=== PATIENT | male | born 1955 | race Caucasian/White ===

== ENCOUNTER 2025-06-18 02:32 | Inpatient (IN) | payer MEDICARE, OTHER ==
[~2025-06-18] VITALS: Ht 152.4 cm; Wt 65.8 kg
[2025-06-18] MEDS ORDERED: MAGNESIUM HYDROXIDE 30 ML LIQUID UDC PO PRN (03:00)
[2025-06-18] MEDS ORDERED: ACETAMINOPHEN 325 MG TABLET PO PRN (03:00)
[2025-06-18] MEDS ORDERED: MAG HYDROX/AL HYDROX/SIMETH 30 ML LIQUID UDC PO PRN (03:00)
[2025-06-18] MEDS ORDERED: ZOLPIDEM 5 MG TABLET PO PRN ×2 (03:00)
[2025-06-18] MEDS ORDERED: QUETIAPINE FUMARATE 25 MG TABLET PO PRN ×2 (03:00)
[2025-06-18 03:06] VITALS: BP 130/94; TEMP 98.2; O2SAT 96
[2025-06-18] MEDS: BLOOD SUGAR DIAGNOSTIC 1 EACH STRIP VI ONE (03:16)
[2025-06-18] MEDS ORDERED: IPRA0.2S48 NEB (03:58)
[2025-06-18] MEDS ORDERED: DIVA125C2 PO (03:58)
[2025-06-18] MEDS ORDERED: FLUT1DIS4 IH (03:58)
[2025-06-18] MEDS ORDERED: DOCU250C14 PO (03:58)
[2025-06-18] MEDS ORDERED: METO25TA6 PO (03:58)
[2025-06-18] MEDS ORDERED: PANT40TA2 PO (03:58)
[2025-06-18] MEDS ORDERED: ALBU2.5V13 IH (03:58)
[2025-06-18] MEDS ORDERED: FURO20TA4 PO (03:58)
[2025-06-18] MEDS ORDERED: NA P133E RC (03:58)
[2025-06-18] MEDS ORDERED: SENN1TAB59 PO (03:58)
[2025-06-18] MEDS ORDERED: CYCL5TAB4 PO (03:58)
[2025-06-18] MEDS ORDERED: LOSA50TA39 PO (03:58)
[2025-06-18] MEDS ORDERED: MULT-1119 PO (03:58)
[2025-06-18] MEDS ORDERED: LIDO700A30 TP (09:31)
[2025-06-18] MEDS ORDERED: CHOL-35 PO (09:31)
[2025-06-18] MEDS ORDERED: ERGO125010 PO (09:31)
[2025-06-18] MEDS ORDERED: MAGN400O6 PO (09:31)
[2025-06-18] MEDS ORDERED: ACET-3752 PO (09:31)
[2025-06-18 09:43] VITALS: BP 96/70; TEMP 98; O2SAT 96
[2025-06-18] MEDS ORDERED: LIDOCAINE 5% PATCH TD PRN (12:30)
[2025-06-18] MEDS ORDERED: FLEET ENEMA 133 ML BOTTLE RC PRN (12:30)
[2025-06-18] MEDS ORDERED: OLANZAPINE 2.5 MG TABLET PO PRN (13:00)
[2025-06-18] MEDS: DIVALPROEX 125 MG TABLET.DR PO SCH (14:00)
[2025-06-18] MEDS ORDERED: SENN8.6T19 PO (14:17)
[2025-06-18] MEDS ORDERED: CYCLOBENZAPRINE HCL 10 MG TABLET PO PRN (14:30)
[2025-06-18] MEDS ORDERED: FLUTICASONE/SALMETEROL 250/50 INHALER IH SCH (17:00)
[2025-06-18] MEDS: MOMETASONE/FORMOTEROL 8.8 GM HFA.AER.AD IH SCH (20:31)
[2025-06-18] MEDS: OLANZAPINE 2.5 MG TABLET PO SCH (20:31)
[2025-06-18] MEDS: SENNOSIDES 1 TABLET PO SCH (20:31)
[2025-06-18] MEDS: DOCUSATE SODIUM 100 MG CAPSULE PO SCH (20:31)
[2025-06-18] MEDS ORDERED: SENNOSIDES/DOCUSATE SODIUM TABLET PO SCH (21:00)
[2025-06-18] MEDS ORDERED: DOCUSATE SODIUM 250 MG CAPSULE PO SCH (21:00)
[2025-06-19] MEDS: PANTOPRAZOLE SODIUM 40 MG TABLET.DR PO SCH (06:54)
[2025-06-19 07:40] VITALS: BP 100/61; TEMP 98; O2SAT 96
[2025-06-19] MEDS: MULTIVITAMINS,THERAPEUTIC TABLET PO SCH (09:00)
[2025-06-19] MEDS: CHOLECALCIFEROL 1,000 UNIT TABLET PO SCH (09:00)
[2025-06-20] MEDS: OLANZAPINE 2.5 MG TABLET PO SCH (09:00)
[2025-06-24] MEDS: OLANZAPINE 10 MG VIAL IM PRN (20:53)
[2025-06-25] MEDS: ENSURE ENLIVE (VAN) 240 ML LIQUID PO SCH (17:00)
[2025-06-27] MEDS: OLANZAPINE 10 MG VIAL IM PRN (09:35)
[2025-06-27] MEDS: OLANZAPINE 2.5 MG TABLET PO SCH (13:00)
[2025-06-27 20:20] VITALS: O2SAT 97
[2025-06-27] MEDS: IPRATROPIUM BROMIDE 0.5 MG/2.5 ML NEBU NEB PRN (20:33)
[2025-06-27] MEDS: ALBUTEROL SULFATE 2.5 MG/ 0.5 ML NEBU IH PRN (20:33)
[2025-06-27 20:35] VITALS: O2SAT 99
[2025-06-28 16:43] VITALS: O2SAT 99
[2025-06-28 16:58] VITALS: O2SAT 99
[2025-06-28 20:20] VITALS: BP 131/89; TEMP 97.9; O2SAT 93
[2025-06-28 22:51] VITALS: O2SAT 98
[2025-06-28 23:04] VITALS: O2SAT 100
[2025-06-29 10:32] VITALS: O2SAT 96
[2025-06-29 10:47] VITALS: O2SAT 99
[2025-06-30 10:00] VITALS: O2SAT 97
[2025-06-30 10:10] VITALS: O2SAT 99
[2025-06-30] MEDS ORDERED: LORAZEPAM 2 MG/1 ML VIAL IV PRN (12:00)
[2025-06-30 12:08] LABS: PLATELET COUNT (AUTO) 303 K/uL (152-348); RED BLOOD CELL COUNT(AUTO) 5.12 MIL/uL (4.06-5.63); RED CELL DISTRIBUTION WIDTH 15.1 % (12.1-16.2); WHITE BLOOD COUNT (AUTO) 9.2 K/uL (3.6-10.2)
[2025-06-30 12:29] LABS: ASPARTATE AMINOTRANSFERASE 29.0 U/L (15-37); CREATININE 0.8 mg/dL (0.6-1.3); SODIUM SERUM 146.0 mmol/L (136-145); TOTAL PROTEIN, SERUM 7.5 g/dL (6.4-8.2); UREA NITROGEN, BLOOD 21.0 mg/dL (7-18)
[2025-06-30] MEDS: HALOPERIDOL 1 MG TABLET PO SCH (14:00)
[2025-06-30] MEDS: HALOPERIDOL LACTATE 5 MG/1 ML VIAL IM PRN (14:23)
[2025-06-30] MEDS: HALOPERIDOL 2 MG TABLET PO SCH (21:00)
[2025-07-01] MEDS ORDERED: DOCU100C36 PO (14:28)
[2025-07-01] MEDS ORDERED: HALO1TAB2 PO (14:35)
[2025-07-01] MEDS ORDERED: ZOLP5TAB2 PO (14:35)
[2025-07-01] MEDS ORDERED: DIVA125T2 PO (14:35)
[2025-07-01] MEDS ORDERED: MAG355OR18 PO (14:36)
[2025-07-01] MEDS ORDERED: HALO5VIA9 IM (14:43)
[2025-07-01] MEDS ORDERED: LACT-246 PO (14:44)
== END 2025-07-01 12:30 | disposition short-term general hospital (02) | DRG 885 ==
LOC: GPS 02:32
PROVIDERS: ADMIT Psychiatry & Neurology Psychiatry; ATTEND Internal Medicine
DX: F29 Unspecified psychosis not due to a substance or known physiological condition (principal); J44.1 Chronic obstructive pulmonary disease with (acute) exacerbation; F39 Unspecified mood [affective] disorder; E66.9 Obesity, unspecified; G31.84 Mild cognitive impairment of uncertain or unknown etiology; Z91.199 Patient's noncompliance with other medical treatment and regimen due to unspecified reason; Z87.01 Personal history of pneumonia (recurrent); Z87.891 Personal history of nicotine dependence; Z68.28 Body mass index [BMI] 28.0-28.9, adult; G89.29 Other chronic pain; Z86.39 Personal history of other endocrine, nutritional and metabolic disease; G62.9 Polyneuropathy, unspecified; H91.93 Unspecified hearing loss, bilateral
CPT/HCPCS: 36415; 71045; 71250; 85025; 93005; 94640; 94664; J1630; J2358; J2919; J3590

== ENCOUNTER 2025-07-01 12:59 | Inpatient (IN) | payer MEDICARE, OTHER ==
[~2025-07-01] VITALS: Ht 152.4 cm; Wt 61.9 kg
[~2025-07-01 12:59] MED LIST: ACET-3752 PO; ALBU2.5V13 IH; CHOL-35 PO; CYCL5TAB4 PO; DOCU250C14 PO; ERGO125010 PO; FLUT1DIS4 IH; FURO20TA4 PO; IPRA0.2S48 NEB; LIDO700A30 TP; LOSA50TA39 PO; MAGN400O6 PO; METO25TA6 PO; MULT-1119 PO; NA P133E RC; PANT40TA2 PO; SENN8.6T19 PO
[2025-07-01 13:07] VITALS: BP 116/67; TEMP 98.4; O2SAT 91
[2025-07-01] MEDS: ALBUTEROL SULFATE 2.5 MG/3 ML NEBU NEB SCH (13:30)
[2025-07-01] MEDS ORDERED: MAGNESIUM HYDROXIDE 30 ML LIQUID UDC PO PRN ×2 (13:30→16:00)
[2025-07-01] MEDS ORDERED: ACETAMINOPHEN 325 MG TABLET PO PRN (13:30)
[2025-07-01] MEDS: IPRATROPIUM BROMIDE 0.5 MG/2.5 ML NEBU NEB SCH (13:30)
[2025-07-01] MEDS ORDERED: ONDANSETRON 4 MG/2 ML VIAL IV PRN (13:30)
[2025-07-01] MEDS ORDERED: DOCU100C36 PO (14:28)
[2025-07-01] MEDS ORDERED: ZOLP5TAB2 PO (14:35)
[2025-07-01] MEDS ORDERED: DIVA125T2 PO (14:35)
[2025-07-01] MEDS ORDERED: HALO1TAB2 PO (14:35)
[2025-07-01] MEDS ORDERED: MAG355OR18 PO (14:36)
[2025-07-01] MEDS ORDERED: HALO5VIA9 IM (14:43)
[2025-07-01] MEDS ORDERED: LACT-246 PO (14:44)
[2025-07-01 15:40] LABS: PLATELET COUNT (AUTO) 266 K/uL (152-348); RED BLOOD CELL COUNT(AUTO) 5.10 MIL/uL (4.06-5.63); RED CELL DISTRIBUTION WIDTH 15.5 % (12.1-16.2); WHITE BLOOD COUNT (AUTO) 8.9 K/uL (3.6-10.2)
[2025-07-01 15:48] LABS: CREATININE 0.7 mg/dL (0.6-1.3); SODIUM SERUM 144 mmol/L (136-145); UREA NITROGEN, BLOOD 17 mg/dL (7-18)
[2025-07-01] MEDS ORDERED: MAG HYDROX/AL HYDROX/SIMETH 30 ML LIQUID UDC PO PRN (16:00)
[2025-07-01] MEDS ORDERED: LIDOCAINE 5% PATCH TD PRN (16:00)
[2025-07-01] MEDS ORDERED: ACETAMINOPHEN 325 MG TABLET-SA PATIENTS-PAIN ONLY PO PRN (16:00)
[2025-07-01 16:15] VITALS: BP 120/80; TEMP 98.2; O2SAT 95
[2025-07-01] MEDS ORDERED: CYCLOBENZAPRINE HCL 10 MG TABLET PO PRN (16:30)
[2025-07-01] MEDS ORDERED: FLUTICASONE/SALMETEROL 250/50 INHALER IH SCH (17:00)
[2025-07-01] MEDS: ENSURE ENLIVE (VAN) 240 ML LIQUID PO SCH (17:03)
[2025-07-01] MEDS ORDERED: Medication Not On Formulary EA (Lactose-Reduced Food (Ensure Enlive) 237 ML) PO SCH (18:00)
[2025-07-01 19:39] VITALS: O2SAT 92
[2025-07-01 19:49] VITALS: O2SAT 94
[2025-07-01] MEDS: SENNOSIDES 1 TABLET PO SCH (21:00)
[2025-07-01] MEDS: ENOXAPARIN SODIUM 40 MG/0.4 ML DISP.SYRIN SQ SCH (21:00)
[2025-07-01] MEDS: DOCUSATE SODIUM 100 MG CAPSULE PO SCH (21:00)
[2025-07-01] MEDS: MOMETASONE/FORMOTEROL 8.8 GM HFA.AER.AD IH SCH (21:00)
[2025-07-01] MEDS: DIVALPROEX 125 MG TABLET.DR PO SCH (21:00)
[2025-07-01] MEDS: HALOPERIDOL 1 MG TABLET PO SCH (21:00)
[2025-07-01] MEDS: HALOPERIDOL LACTATE 5 MG/1 ML VIAL IM PRN (21:59)
[2025-07-02] VITALS (9 sets, daily range): BP systolic 112–120; BP diastolic 65–72; TEMP 97.6–98.8; O2SAT 92–96
[2025-07-02] MEDS: ZOLPIDEM 5 MG TABLET PO PRN (02:06)
[2025-07-02] MEDS: PANTOPRAZOLE SODIUM 40 MG TABLET.DR PO SCH (06:11)
[2025-07-02 06:46] LABS: PLATELET COUNT (AUTO) 289 K/uL (152-348); RED BLOOD CELL COUNT(AUTO) 4.93 MIL/uL (4.06-5.63); RED CELL DISTRIBUTION WIDTH 15.4 % (12.1-16.2); WHITE BLOOD COUNT (AUTO) 7.6 K/uL (3.6-10.2)
[2025-07-02] MEDS ORDERED: PANTOPRAZOLE SODIUM 40 MG TABLET.DR PO SCH (07:00)
[2025-07-02 07:21] LABS: CREATININE 0.7 mg/dL (0.6-1.3); SODIUM SERUM 144.0 mmol/L (136-145); UREA NITROGEN, BLOOD 17.0 mg/dL (7-18)
[2025-07-02] MEDS ORDERED: HALOPERIDOL LACTATE 5 MG/1 ML VIAL IM PRN (07:24)
[2025-07-02] MEDS: MULTIVITAMINS,THERAPEUTIC TABLET PO SCH (08:52)
[2025-07-02] MEDS ORDERED: HALOPERIDOL 2 MG TABLET PO SCH (09:00)
[2025-07-02] MEDS: HALOPERIDOL 2 MG TABLET PO SCH (14:00)
[2025-07-02] MEDS: HALOPERIDOL LACTATE 5 MG/1 ML VIAL IM PRN (14:17)
[2025-07-03] VITALS (11 sets, daily range): BP systolic 118–127; BP diastolic 83; TEMP 97.5–97.7; O2SAT 91–96
[2025-07-03 07:09] LABS: PLATELET COUNT (AUTO) 291 K/uL (152-348); RED BLOOD CELL COUNT(AUTO) 4.72 MIL/uL (4.06-5.63); RED CELL DISTRIBUTION WIDTH 15.3 % (12.1-16.2); WHITE BLOOD COUNT (AUTO) 12.7 K/uL (3.6-10.2)
[2025-07-03 07:26] LABS: CREATININE 0.8 mg/dL (0.6-1.3); SODIUM SERUM 144.0 mmol/L (136-145); UREA NITROGEN, BLOOD 20.0 mg/dL (7-18)
[2025-07-03] MEDS ORDERED: CEFTRIAXONE 500 MG VIAL IM ONE (13:30)
[2025-07-03] MEDS: ALBUTEROL SULFATE 2.5 MG/3 ML NEBU NEB PRN (14:35)
[2025-07-03] MEDS: IPRATROPIUM BROMIDE 0.5 MG/2.5 ML NEBU NEB PRN (14:35)
[2025-07-03] MEDS ORDERED: HALOPERIDOL 2 MG TABLET PO SCH (21:00)
[2025-07-03] MEDS: HALOPERIDOL 5 MG TABLET PO SCH (21:00)
[2025-07-03] MEDS: HALOPERIDOL LACTATE 5 MG/1 ML VIAL IM PRN (21:59)
[2025-07-04] VITALS (11 sets, daily range): BP systolic 112–141; BP diastolic 59–75; TEMP 97.6–98.8; O2SAT 92–98
[2025-07-04 06:42] LABS: PLATELET COUNT (AUTO) 288 K/uL (152-348); RED BLOOD CELL COUNT(AUTO) 4.77 MIL/uL (4.06-5.63); RED CELL DISTRIBUTION WIDTH 14.9 % (12.1-16.2); WHITE BLOOD COUNT (AUTO) 8.2 K/uL (3.6-10.2)
[2025-07-04 06:59] LABS: CREATININE 0.5 mg/dL (0.6-1.3); SODIUM SERUM 141 mmol/L (136-145); UREA NITROGEN, BLOOD 17 mg/dL (7-18)
[2025-07-05] VITALS (10 sets, daily range): BP systolic 93–125; BP diastolic 64–80; TEMP 97.8–99; O2SAT 93–98
[2025-07-05 07:09] LABS: PLATELET COUNT (AUTO) 302 K/uL (152-348); RED BLOOD CELL COUNT(AUTO) 4.95 MIL/uL (4.06-5.63); RED CELL DISTRIBUTION WIDTH 14.9 % (12.1-16.2); WHITE BLOOD COUNT (AUTO) 11.1 K/uL (3.6-10.2)
[2025-07-05 07:25] LABS: CREATININE 0.6 mg/dL (0.6-1.3); SODIUM SERUM 141 mmol/L (136-145); UREA NITROGEN, BLOOD 16 mg/dL (7-18)
[2025-07-06 05:50] VITALS: BP 139/95; TEMP 97.3; O2SAT 95
[2025-07-06 06:05] VITALS: O2SAT 95
[2025-07-06 06:15] VITALS: O2SAT 98
[2025-07-06 07:17] LABS: PLATELET COUNT (AUTO) 290 K/uL (152-348); RED BLOOD CELL COUNT(AUTO) 5.06 MIL/uL (4.06-5.63); RED CELL DISTRIBUTION WIDTH 15.0 % (12.1-16.2); WHITE BLOOD COUNT (AUTO) 10.1 K/uL (3.6-10.2)
[2025-07-06 07:33] LABS: CREATININE 0.8 mg/dL (0.6-1.3); SODIUM SERUM 137.0 mmol/L (136-145); UREA NITROGEN, BLOOD 23.0 mg/dL (7-18)
[2025-07-06] MEDS ORDERED: PRED20TA PO ×2 (11:23)
[2025-07-06] MEDS ORDERED: HALO5TAB12 PO (15:14)
[2025-07-06] MEDS ORDERED: ALBU2.5V38 NEB (15:53)
[2025-07-06] MEDS ORDERED: ENOX40DI SQ (15:54)
[2025-07-06] MEDS ORDERED: IPRA0.2S48 NEB (15:59)
[2025-07-06] MEDS ORDERED: MOME13HF12 INH (16:13)
[2025-07-06] MEDS ORDERED: ONDA4SYR IV (16:14)
[2025-07-06] MEDS ORDERED: FLUT1DIS4 IH (16:32)
== END 2025-07-06 13:30 | DRG 190 ==
LOC: TELE3 12:59 → MEDSURG3 07-02 09:28
PROVIDERS: ADMIT Nurse Practitioner Family; ATTEND Nurse Practitioner Family
DX: J44.1 Chronic obstructive pulmonary disease with (acute) exacerbation (principal); J96.01 Acute respiratory failure with hypoxia; F39 Unspecified mood [affective] disorder; E66.9 Obesity, unspecified; I11.9 Hypertensive heart disease without heart failure; J98.11 Atelectasis; Z68.28 Body mass index [BMI] 28.0-28.9, adult; Z91.199 Patient's noncompliance with other medical treatment and regimen due to unspecified reason; R00.0 Tachycardia, unspecified; H91.93 Unspecified hearing loss, bilateral; K57.30 Diverticulosis of large intestine without perforation or abscess without bleeding; N40.0 Benign prostatic hyperplasia without lower urinary tract symptoms; Z78.1 Physical restraint status; D72.829 Elevated white blood cell count, unspecified
CPT/HCPCS: 36415; 71045; 82785; 83605; 83735; 84100; 84443; 84484; 85025; 87040; 94640; 94664; 94760; G0378; J0696; J1630; J1650; J2919; J3590

== ENCOUNTER 2025-07-06 13:41 | Inpatient (IN) | payer MEDICARE, OTHER ==
[~2025-07-06] VITALS: Ht 162.6 cm; Wt 60.3 kg
[2025-07-06 08:00] VITALS: BP 134/74; TEMP 97.8; O2SAT 94
[2025-07-06 12:00] VITALS: BP 117/66; TEMP 98.5; O2SAT 92
[~2025-07-06 13:41] MED LIST changes: -CHOL-35 PO; +DIVA125T2 PO; +DOCU100C36 PO; -DOCU250C14 PO; -ERGO125010 PO; -FURO20TA4 PO; +HALO1TAB2 PO; +HALO5VIA9 IM; +LACT-246 PO; -LOSA50TA39 PO; +MAG355OR18 PO; -METO25TA6 PO; -NA P133E RC; +PRED20TA PO; +ZOLP5TAB2 PO
[2025-07-06] MEDS ORDERED: MAGNESIUM HYDROXIDE 30 ML LIQUID UDC PO PRN (15:00)
[2025-07-06] MEDS ORDERED: QUETIAPINE FUMARATE 25 MG TABLET PO PRN (15:00)
[2025-07-06] MEDS ORDERED: ACETAMINOPHEN 325 MG TABLET PO PRN (15:00)
[2025-07-06] MEDS ORDERED: ZOLPIDEM 5 MG TABLET PO PRN (15:00)
[2025-07-06] MEDS ORDERED: MAG HYDROX/AL HYDROX/SIMETH 30 ML LIQUID UDC PO PRN (15:00)
[2025-07-06] MEDS ORDERED: HALO5TAB12 PO (15:14)
[2025-07-06] MEDS ORDERED: ALBU2.5V38 NEB (15:53)
[2025-07-06] MEDS ORDERED: ENOX40DI SQ (15:54)
[2025-07-06] MEDS ORDERED: IPRA0.2S48 NEB (15:59)
[2025-07-06 16:08] VITALS: BP 129/70; TEMP 98.5; O2SAT 92
[2025-07-06] MEDS ORDERED: MOME13HF12 INH (16:13)
[2025-07-06] MEDS ORDERED: ONDA4SYR IV (16:14)
[2025-07-06] MEDS ORDERED: FLUT1DIS4 IH (16:32)
[2025-07-06] MEDS ORDERED: ALBUTEROL SULFATE 2.5 MG/ 0.5 ML NEBU NEB PRN (17:00)
[2025-07-06] MEDS ORDERED: ALBUTEROL SULFATE 8 GM HFA.AER.AD IH PRN (17:00)
[2025-07-06] MEDS: DOCUSATE SODIUM 100 MG CAPSULE PO SCH (17:34)
[2025-07-06 19:58] VITALS: BP 136/68; TEMP 98.2; O2SAT 95
[2025-07-06] MEDS ORDERED: FLUTICASONE/SALMETEROL 250/50 INHALER IH SCH (21:00)
[2025-07-06] MEDS: MOMETASONE/FORMOTEROL 8.8 GM HFA.AER.AD IH SCH (21:13)
[2025-07-07] MEDS: PANTOPRAZOLE SODIUM 40 MG TABLET.DR PO SCH (06:52)
[2025-07-07 08:14] LABS: ASPARTATE AMINOTRANSFERASE 9.0 U/L (15-37); CREATININE 0.7 mg/dL (0.6-1.3); SODIUM SERUM 139.0 mmol/L (136-145); TOTAL PROTEIN, SERUM 5.9 g/dL (6.4-8.2); UREA NITROGEN, BLOOD 18.0 mg/dL (7-18)
[2025-07-07 08:32] VITALS: BP 108/71; TEMP 98.1; O2SAT 92
[2025-07-07] MEDS: MIRALAX 17 GM POWD.PACK PO SCH (09:25)
[2025-07-07] MEDS: HALOPERIDOL 5 MG TABLET PO SCH (13:37)
[2025-07-07] MEDS: DIVALPROEX 125 MG TABLET.DR PO SCH (13:37)
[2025-07-07] MEDS: HALOPERIDOL DECANOATE 50 MG/1 ML AMPUL IM SCH (13:43)
[2025-07-07 16:50] VITALS: BP 100/62; TEMP 98.5; O2SAT 92
[2025-07-07 20:00] VITALS: BP 92/52; TEMP 98; O2SAT 92
[2025-07-07] MEDS: MIRTAZAPINE 15 MG TABLET PO SCH (21:00)
[2025-07-08 16:10] VITALS: BP 138/84; TEMP 98; O2SAT 93
[2025-07-08 19:50] VITALS: BP 136/84; TEMP 98.1; O2SAT 93
[2025-07-09 08:40] VITALS: O2SAT 95
[2025-07-09] MEDS: ALBUTEROL SULFATE 2.5 MG/3 ML NEBU NEB PRN (15:32)
[2025-07-09 20:00] VITALS: BP 113/71; O2SAT 94
[2025-07-10 20:00] VITALS: BP 105/62; O2SAT 95
[2025-07-11 08:20] VITALS: BP 101/74; TEMP 98; O2SAT 98
[2025-07-11] MEDS: ATORVASTATIN 20 MG TABLET PO SCH (20:44)
[2025-07-12 08:16] VITALS: BP 108/60; TEMP 98; O2SAT 98
[2025-07-12] MEDS: ASPIRIN 81 MG TAB.CHEW PO SCH (08:30)
[2025-07-12 16:16] VITALS: BP 110/61; TEMP 98; O2SAT 98
[2025-07-12 20:12] VITALS: BP 110/74; TEMP 97.9; O2SAT 95
[2025-07-13 08:41] VITALS: BP 107/59; TEMP 98; O2SAT 98
[2025-07-13 16:32] VITALS: BP 110/63; TEMP 98; O2SAT 98
[2025-07-13 20:00] VITALS: BP 104/71; O2SAT 94
[2025-08-06] MEDS ORDERED: HALOPERIDOL DECANOATE 50 MG/1 ML AMPUL IM SCH (09:00)
== END 2025-07-14 13:15 | DRG 885 ==
LOC: GPS 13:41
PROVIDERS: ADMIT Psychiatry & Neurology Psychiatry; ATTEND Internal Medicine
DX: F29 Unspecified psychosis not due to a substance or known physiological condition (principal); J44.1 Chronic obstructive pulmonary disease with (acute) exacerbation; F94.0 Selective mutism; F39 Unspecified mood [affective] disorder; E66.9 Obesity, unspecified; I10 Essential (primary) hypertension; J98.11 Atelectasis; J44.9 Chronic obstructive pulmonary disease, unspecified; Z68.28 Body mass index [BMI] 28.0-28.9, adult; R41.9 Unspecified symptoms and signs involving cognitive functions and awareness; K21.9 Gastro-esophageal reflux disease without esophagitis; E78.5 Hyperlipidemia, unspecified; R00.0 Tachycardia, unspecified; K57.30 Diverticulosis of large intestine without perforation or abscess without bleeding; N40.0 Benign prostatic hyperplasia without lower urinary tract symptoms; Z91.148 Patient's other noncompliance with medication regimen for other reason; Z53.20 Procedure and treatment not carried out because of patient's decision for unspecified reasons; H91.93 Unspecified hearing loss, bilateral
CPT/HCPCS: 36415; 94664; J1631; J7512